=== PATIENT | female | born 1970 | race Two or more races ===

== ENCOUNTER 2018-11-30 16:46 | Emergency (ER) | payer MEDICAID, OTHER ==
[~2018-11-30] VITALS: Ht 160 cm; Wt 91.0 kg
[2018-11-30 17:14] VITALS: BP 148/102
[2018-11-30] MEDS ORDERED: IBUP-1984 PO (20:16)
[2018-11-30] MEDS ORDERED: PENI500T2 PO (20:16)
[2018-11-30] MEDS ORDERED: CLIN150C2 PO (20:38)
== END 2018-11-30 20:43 | disposition home or self-care (01) ==
LOC: ER 16:46
DX: K04.7 Periapical abscess without sinus (principal); Z88.1 Allergy status to other antibiotic agents; Z88.5 Allergy status to narcotic agent; Z88.2 Allergy status to sulfonamides; Z91.013 Allergy to seafood; Z79.899 Other long term (current) drug therapy
CPT/HCPCS: 41800; 99283